=== PATIENT | male | born 1985 | race Hispanic/Latino ===

== ENCOUNTER 2023-02-25 11:00 | Emergency (ER) | payer OTHER ==
[~2023-02-25] VITALS: Ht 175.3 cm; Wt 107.5 kg
[2023-02-25] MEDS ORDERED: IBUPROFEN 600 MG TABLET PO ONE (12:00)
[2023-02-25] MEDS ORDERED: IBUP-2070 PO (13:41)
[2023-02-25] MEDS ORDERED: DEXAMETHASONE SOD PHOSPHATE 10MG/ML 1ML VIAL ONE (13:47)
[2023-02-25] MEDS ORDERED: PENICILLIN G BENZATHINE LA 1.2 MILUNITS/2 ML SYG IM ONE (14:00)
[2023-02-25] MEDS ORDERED: DEXAMETHASONE SOD PHOSPHATE 4 MG/ML 1ML VIAL IM ONE (14:00)
[2023-02-25 14:01] VITALS: BP 118/64
== END 2023-02-25 14:00 | disposition home or self-care (01) ==
LOC: EDH 11:00
DX: J02.0 Streptococcal pharyngitis (principal); Z20.822 Contact with and (suspected) exposure to COVID-19
CPT/HCPCS: 99284; 87635; 87880; 87804 ×2; 96372 ×2; J0561; C9803; J1100